=== PATIENT | female | born 2005 | race Caucasian/White ===

== ENCOUNTER 2023-09-03 06:49 | Emergency (ER) | payer BC ==
[~2023-09-03] VITALS: Ht 160 cm; Wt 62.5 kg
[2023-09-03 08:33] LABS: BASOPHILS % (AUTO) 1 % (0-10); EOSINOPHILS # (AUTO) 0.1 10^3/uL (0.0-0.3); EOSINOPHILS % (AUTO) 2 % (0-10); HEMATOCRIT 40 % (35-52); HEMOGLOBIN 13.5 g/dL (11.5-16.0); LYMPHOCYTES # (AUTO) 1.2 10^3/uL (1.0-4.0); LYMPHOCYTES % (AUTO) 22 % (12-44); MEAN CORPUSCULAR HEMOGLOBIN 31 pg (25-34); MEAN CORPUSCULAR HGB CONC 34 g/dL (32-36); MEAN CORPUSCULAR VOLUME 91 fL (80-99); MEAN PLATELET VOLUME 9.2 fL (9.0-12.2); MONOCYTES # (AUTO) 0.6 10^3/uL (0.0-1.0); MONOCYTES % (AUTO) 12 % (0-12); NEUTROPHILS # (AUTO) 3.4 10^3/uL (1.8-7.8); NEUTROPHILS % (AUTO) 63 % (42-75); PLATELET COUNT 326 10^3/uL (130-400); WHITE BLOOD COUNT 5.3 10^3/uL (4.3-11.0)
[2023-09-03 08:33] LABS: AMPHETAMINE SCREEN, URINE NEGATIVE (NEGATIVE); BARBITURATE SCREEN URINE NEGATIVE (NEGATIVE); CANNABINOID SCREEN, URINE POSITIVE (NEGATIVE); COCAINE SCREEN URINE NEGATIVE (NEGATIVE); METHADONE STAT NEGATIVE (NEGATIVE); OPIATE SCREEN URINE NEGATIVE (NEGATIVE); OXYCODONE STAT NEGATIVE (NEGATIVE); TRICYCLIC ANTIDEPRESSANTS SCRE NEGATIVE (NEGATIVE)
[2023-09-03 08:39] LABS: ALBUMIN 4.1 GM/DL (3.2-4.5); POTASSIUM 3.9 MMOL/L (3.6-5.0)
[2023-09-03 08:40] LABS: CALCIUM 9.2 MG/DL (8.5-10.1)
[2023-09-03 08:41] LABS: TOTAL PROTEIN 7.6 GM/DL (6.4-8.2)
[2023-09-03 08:43] LABS: BILIRUBIN,TOTAL 0.6 MG/DL (0.1-1.0)
[2023-09-03 08:44] LABS: BACTERIA,URINE TRACE /HPF; BILIRUBIN,URINE NEGATIVE (NEGATIVE); CLARITY,URINE CLEAR; COLOR,URINE YELLOW; GLUCOSE, URINE (UA) NEGATIVE (NEGATIVE); KETONES,URINE 1+ (NEGATIVE); LEUKOCYTE ESTERASE ,URINE NEGATIVE (NEGATIVE); NITRITE,URINE NEGATIVE (NEGATIVE); PH,URINE 7.5 (5-9); PROTEIN,URINE NEGATIVE (NEGATIVE); SQUAMOUS EPITHELIAL CELL,UR RARE /HPF
[2023-09-03 08:45] LABS: CREATININE SERUM 0.7 MG/DL (0.60-1.30)
[2023-09-03] MEDS ORDERED: STRAT40CAP PO (11:59)
[2023-09-03] MEDS ORDERED: SERT25TA PO (11:59)
--- NOTE | 2023-09-03 11:59 | ED Psychosocial ---
General Chief Complaint: Psych/Social Disorder Stated Complaint: PANIC ATTACK/ANXIETY Nursing Triage Note: PT AMB TO [facility] WITH C/O WAKING UP WITH SOB WHICH SHE STATES HAS BEEN GOING ON X1 WEEK AND PAINS IN HER CHEST THAT HAVE BEEN GOING ON X6 WEEKS. PT STATES SHE HAS BEEN STRESSED AT WORK AND FEELING ANXIOUS BUT NO LONGER TAKES HER ANXIETY MEDICATION Source: patient Exam Limitations: no limitations History of Present Illness Date Seen by Provider: Sep 03, 2023 Time Seen by Provider: 07:10 Initial Comments Sandra is a tearful and anxious 17 year old young lady who presents to the ER with various complaints. She woke this morning with "heart pain" and shortness of air. She has had significant insomnia recently. 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 She has been taking Ad derall and adding energy drinks and excessive caffeine to her Adderall to stay awake. Her chest pain was stabbing in nature and was in the left upper chest. She reports her heart rate occasionally seems irregular and she has noted it to be as rapid as the 130s. She feels a squeezing sensation during these episodes and has associated shortness of air. She admits to having depression and anxiety. Her boyfriend is presently away on work. Her family is all out of town. She came to [place] with the intent of going to college, but she decided to work because she could not decide on a field of study she wanted to commit to. She vapes and occasionally uses CBD pens. She denies any other drug or alcohol use. She is not suicidal, but she is very tearful. Her primary care provider is in [place]. She has also been congested for a few weeks. She has had a prior psychiatric admit for depression. Allergies and Home Medications Allergies Coded Allergies: No Known Drug Allergies (Unverified , 09/03/23) Patient Home Medication List Home Medication List Reviewed: Yes Atomoxetine (Strattera) 40 Mg Cap, 40 MG PO DAILY Prescribed by: JEFRY CAMPOVERDE on 09/03/23 115 Sertraline HCl (Zoloft) 25 Mg Tablet, 25 MG PO DAILY Prescribed by: JEFRY CAMPOVERDE on 09/03/23 1159 Review of Systems Constitutional: no symptoms reported EENTM: see HPI Respiratory: see HPI Cardiovascular: see HPI Gastrointestinal: no symptoms reported Genitourinary: no symptoms reported : No Control/STD Prophylaxis: BC Pills Musculoskeletal: no symptoms reported Skin: no symptoms reported Psychiatric/Neurological: See HPI Past [id number]-[id number]-[id number] Hx Patient Social History Tobacco Use?: No Use of E-Cig and/or Vaping dev: Yes E-Cig or Vaping type used: Nicotine Substance use?: Yes (CBD pens) Alcohol Use?: No Pt feels they are or have been: No Immunizations Up To Date Influenza Vaccine Up-to-Date: No; Not Current Past Medical History Surgery/Hospitalization HX: ANXIETY, DEPRESSION, ADHD Surgeries: Yes ([place] teeth) Respiratory: No Cardiac: No Neurological: No : No Last Menstrual Period: Aug 13, 2023 Genitourinary: No Gastrointestinal: No Musculoskeletal: No Endocrine: No HEENT: No Cancer: No Psychosocial: Yes ADD/ADHD, Depression (with prior psychiatric admit) Physical Exam Vital Signs - First Documented 09/03/23 09/03/23 07:04 12:07 Temp 37.0 Pulse 87 Resp 20 B/P (MAP) 115/87 (96) Pulse Ox 99 O2 Delivery Room Air Capillary Refill : Height, Weight, BMI Height: '" Weight: lbs. oz. kg; 24.00 BMI Method: General Appearance: WD/WN, moderate distress (rather anxious and tearful) HEENT: PERRL/EOMI, normal ENT inspection Neck: normal inspection Respiratory: lungs clear, normal breath sounds, no respiratory distress Cardiovascular: regular rate, rhythm, no edema, no murmur Gastrointestinal: non tender, soft Extremities: normal inspection, no pedal edema Neurologic/Psychiatric: education assistant II-XII nml as tested, no motor/sensory deficits, alert, oriented x 3, other (Anxious, tearful, intermittent tremors) Appearance/Memory: appropriate appearance, appropriate insight Behavior/Eye Contact: cooperative, good eye contact Skin: normal color, warm/dry Progress/Results/Core Measures Results/Orders Lab Results My Orders Vital Signs/I&O Blood Pressure Mean: 96 Progress Progress Note : Progress Note Sandra was interviewed and examined. Labs were obtained, reviewed and interpreted by me. CBC, CMP, serum , thyroid studies, magnesium, and COVID/Flu swabs were all negative. ECG was unremarkable as noted in my interpretation below. She seems to be stuck in a cycle of using stimulants to stay awake during the day and then struggling to sleep at night. She also lacks social support in this community and is working excessively. We had a long discussion about these issues. I advised stopping stimulant medication and switching to Strattera. She should also taper off of the caffeine and stimulant drinks. We discussed needed changes in her social circumstances. Advised to start SSRI to help with depression, anxiety and insomnia. See discharge instructions for further discussion. Temporary prescriptions were provided. Initial ECG Impression Date: Sep 03, 2023 Initial ECG Impression Time: 07:41 Initial ECG Rate: 70 Initial ECG Rhythm: Normal Sinus Initial ECG Intervals: Normal Initial ECG Impression: Normal Comment Sinus rhythm with variable rate, likely normal respiratory pattern in this young patient. No abnormal intervals or axis deviation. No ST elevation or depression to suggest ischemia. Departure Impression Primary Impression: Insomnia Qualified Codes: G47.00 - Insomnia, unspecified Additional Impressions: Anxiety Depression Qualified Codes: F32.A - Depression, unspecified Attention deficit disorder Qualified Codes: F98.8 - Other specified behavioral and emotional disorders with onset usually occurring in childhood and adolescence Acute stress reaction Disposition: 01 HOME, SELF-CARE Condition: Stable Departure-Patient Inst. Decision time for Depature: 11:54 Referrals: NO,LOCAL PHYSICIAN (PCP/Family) Primary Care Physician Patient Instructions: Attention Deficit Hyperactivity Disorder (ADHD) (DC), Dep ression, Adult ED, Insomnia Add. Discharge Instructions: Stop Adderall and replace with Strattera (atomoxetine). Atomoxetine has a less stimulant effect but should still be effective for ADD/ADHD. Start tapering down on your stimulant use. Do not abruptly stop caffeine as that may cause uncomfortable withdrawal symptoms such as headache, irritability, nausea, etc. Especially avoid caffeine and other stimulants within 6 hours of bedtime. Start Zoloft as prescribed. You should be noticing a decrease in anxiety, improve depression, and better sleep within 1 to 2 weeks of starting this medication. Dosing may be adjusted by a primary care provider as needed. Return to care if you have worsening symptoms despite following these inst ructions. If you have escalating behavioral health needs, you may call the behavioral health crisis line at [phone]. All discharge instructions reviewed with patient and/or family. Voiced understanding. Scripts Sertraline HCl (Zoloft) 25 Mg Tablet 25 MG PO DAILY, #15 TAB Prov: JEFRY BENNETT MD 09/03/23 Atomoxetine (Strattera) 40 Mg Cap 40 MG PO DAILY, #15 CAP Prov: JEFRY BENNETT MD 09/03/23 JEFRY BENNETT MD Sep 03, 2023 11:59
[2023-09-03 12:07] VITALS: BP 114/82
== END 2023-09-03 12:08 | disposition home or self-care (01) ==
LOC: ER 06:53
DX: G47.00 Insomnia, unspecified (principal); F41.9 Anxiety disorder, unspecified; F32.A Depression, unspecified; F98.8 Other specified behavioral and emotional disorders with onset usually occurring in childhood and adolescence; F43.0 Acute stress reaction; F17.290 Nicotine dependence, other tobacco product, uncomplicated
CPT/HCPCS: 36415; 80053; 80306; 81000; 83735; 84439; 84443; 84703; 85025; 87636; 93005; 93041